=== PATIENT | female | born 2000 | race Two or more races ===

== ENCOUNTER 2020-08-13 20:17 | Emergency (ER) | payer MEDICAID, OTHER ==
[~2020-08-13] VITALS: Ht 157.5 cm; Wt 65.8 kg
[2020-08-14 00:25] VITALS: BP 101/59
== END 2020-08-14 00:55 | disposition home or self-care (01) ==
LOC: ER 20:19
DX: S60.551A Superficial foreign body of right hand, initial encounter (principal); W25.XXXA Contact with sharp glass, initial encounter; Y93.89 Activity, other specified; Y92.89 Other specified places as the place of occurrence of the external cause; Y99.8 Other external cause status
CPT/HCPCS: 73130